=== PATIENT | female | born 1995 | race Caucasian/White ===

== ENCOUNTER 2019-06-01 13:32 | Emergency (ER) | payer BC, OTHER ==
--- NOTE | 2019-06-01 15:07 | EDPHYS ---
Physician Documentation [facility] Name: Harriett Yates Age: 24 yrs Sex: Female : 1995 Arrival Date: 06/01/2019 Time: 13:40 Bed DIS2 Private MD: ED Physician Yesi Klein HPI: 06/01 14:16 This 24 yrs old Female presents to ER via Ambulatory with complaints of Sore pm1 Throat, Congestion, Cough. 14:16 The patient presents with sore throat. The patient describes throat pain as constant, pm1 scratchy. 14:16 Onset: The symptoms/episode began/occurred yesterday. Severity of symptoms: in the pm1 emergency department the symptoms are actually worse. Modifying factors: The symptoms are alleviated by nothing, the symptoms are aggravated by swallowing, Patient's oral intake status: good The patient has had contact with sick spouse, who is present in the ER for the same complaint. Associated signs and symptoms: Pertinent positives: cough, Pertinent negatives fever, flu-like symptoms. The patient has not experienced similar symptoms in the past. The patient has not recently seen a physician. Historical: - Allergies: 13:49 PENICILLINS; la1 - PMHx: 13:49 ADD/ADHD; la1 - Immunization history:: Adult Immunizations up to date. - Social history:: Smoking status: Patient/guardian denies using tobacco. - Ebola Screening: : No symptoms or risks identified at this time. ROS: 14:16 Constitutional: Negative for fever, chills, and weight loss, Eyes: Negative for injury, pm1 pain, redness, and discharge. 14:16 Neck: Negative for injury, pain, and swelling, Cardiovascular: Negative for chest pain, palpitations, and edema. 14:16 Abdomen/GI: Negative for abdominal pain, nausea, vomiting, diarrhea, and constipation, Back: Negative for injury and pain, : Negative for injury, bleeding, discharge, and swelling, MS/Extremity: Negative for injury and deformity, Skin: Negative for injury, rash, and discoloration, Neuro: Negative for headache, weakness, numbness, tingling, and seizure. 14:16 ENT: Positive for sore throat, Negative for difficulty swallowing, difficulty handling secretions, hoarseness. 14:16 Respiratory: Positive for cough, Negative for shortness of breath, sputum production, wheezing. Exam: 14:16 Constitutional: This is a well developed, well nourished patient who is awake, alert, pm1 and in no acute distress. Head/Face: Normocephalic, atraumatic. Eyes: Pupils equal round and reactive to light, extra-ocular motions intact. Lids and lashes normal. Conjunctiva and sclera are non-icteric and not injected. Cornea within normal limits. Periorbital areas with no swelling, redness, or edema. 14:16 Neck: Trachea midline, no thyromegaly or masses palpated, and no cervical lymphadenopathy. Supple, full range of motion without nuchal rigidity, or vertebral point tenderness. No Meningismus. Chest/axilla: Normal chest wall appearance and motion. Nontender with no deformity. No lesions are appreciated. Cardiovascular: Regular rate and rhythm with a normal S1 and S2. No gallops, murmurs, or rubs. Normal PMI, no JVD. No pulse deficits. Respiratory: Lungs have equal breath sounds bilaterally, clear to auscultation and percussion. No rales, rhonchi or wheezes noted. No increased work of breathing, no retractions or nasal flaring. Abdomen/GI: Soft, non-tender, with normal bowel sounds. No distension or tympany. No guarding or rebound. No evidence of tenderness throughout. Back: No spinal tenderness. No costovertebral tenderness. Full range of motion. Skin: Warm, dry with normal turgor. Normal color with no rashes, no lesions, and no evidence of cellulitis. MS/ Extremity: Pulses equal, no cyanosis. Neurovascular intact. Full, normal range of motion. 14:16 ENT: External ear(s): are unremarkable, Ear canal(s): are normal, TM's: are normal, Nose: is normal, Posterior pharynx: Airway: normal, no evidence of obstruction, patent, Tonsils: bilaterally enlarged, with erythema, no exudate, no ulcerations, peritonsillar mass, is not appreciated. 14:16 Neuro: Orientation: is normal, Motor: is normal, moves all fours, Gait: is steady, at a normal pace, without difficulty. Vital Signs: 13:49 BP 116 / 74; Pulse 60; Resp 16; Temp 97.4; Pulse Ox 100% on R/A; Weight 61.69 kg; la1 Height 5 ft. 6 in. (167.64 cm); 13:49 Body Mass Index 21.95 (61.69 kg, 167.64 cm) la1 MDM: 14:16 Patient medically screened. pm1 15:05 Data reviewed: vital signs. Data interpreted: Pulse oximetry: on room air is 100 %. pm1 Interpretation: normal. Counseling: I had a detailed discussion with the patient and/or guardian regarding: the historical points, exam findings, and any diagnostic results supporting the discharge/admit diagnosis, lab results, the need for outpatient follow up, to return to the emergency department if symptoms worsen or persist or if there are any questions or concerns that arise at home. 06/01 13:41 Order name: Strep; Complete Time: 14:50 la1 06/01 13:41 Order name: Flu; Complete Time: 14:50 la1 06/01 14:19 Order name: Throat Culture EDMS Administered Medications: No medications were administered Disposition: 06/01/19 15:06 Discharged to Home. Impression: Acute nasopharyngitis [common cold]. - Condition is Stable. - Discharge Instructions: Antibiotic Resistance, Upper Respiratory Infection, Pediatric, Viral Respiratory Infection. - Prescriptions for Bromfed DM 2- 30-10 mg/5 mL Oral syrup - take 10 milliliter by ORAL route every 4 hours As needed; 200 milliliter. - Medication Reconciliation Form, Thank You Letter, Antibiotic Education, Prescription Opioid Use form. - Follow up: Emergency Department; When: As needed; Reason: Worsening of condition. Follow up: Private Physician; When: 2 - 3 days; Reason: Recheck today's complaints, Continuance of care, Re-evaluation by your physician. - Problem is new. - Symptoms have improved. Addendum: 06/02/2019 16:45 Co-signature as Attending Physician, Yesi Klein MD I agree with the assessment m a2 and plan of care. Signatures: Dispatcher [employer] EDMS Gibson Holder RN RN la1 Grayson Ortega, CARD GAME OPERATOR CARD GAME OPERATOR pm1 Yesi Klein MD MD ma2 Corrections: (The following items were deleted from the chart) 06/01 15:40 15:06 06/01/2019 15:06 Discharged to Home. Impression: Acute nasopharyngitis [common la1 cold]. Condition is Stable. Forms are Medication Reconciliation Form, Thank You Letter, Antibiotic Education, Prescription Opioid Use. Follow up: Emergency Department; When: As needed; Reason: Worsening of condition. Follow up: Private Physician; When: 2 - 3 days; Reason: Recheck today's complaints, Continuance of care, Re-evaluation by your physician. Problem is new. Symptoms have improved. pm1
--- NOTE | 2019-06-01 15:07 | ER ---
Nurse's Notes [facility] Name: Harriett Yates Age: 24 yrs Sex: Female : 1995 Arrival Date: 06/01/2019 Time: 13:40 Bed DIS2 Private MD: Diagnosis: Acute nasopharyngitis [common cold] Presentation: 06/01 13:48 Presenting complaint: Patient states: Cough, congestion, chills for one day. Transition la1 of care: patient was not received from another setting of care. Onset of symptoms was June 01, 2019. Risk Assessment: Do you want to hurt yourself or someone else? Patient reports no desire to harm self or others. Initial Sepsis Screen: Does the patient meet any 2 criteria? No. Patient's initial sepsis screen is negative. Does the patient have a suspected source of infection? No. Patient's initial sepsis screen is negative. Care prior to arrival: None. 13:48 Method Of Arrival: Ambulatory la1 13:48 Acuity: ASIYA 4 la1 Historical: - Allergies: 13:49 PENICILLINS; la1 - PMHx: 13:49 ADD/ADHD; la1 - Immunization history:: Adult Immunizations up to date. - Social history:: Smoking status: Patient/guardian denies using tobacco. - Ebola Screening: : No symptoms or risks identified at this time. Screenin:01 Abuse screen: Denies threats or abuse. Nutritional screening: No deficits noted. la1 Tuberculosis screening: No symptoms or risk factors identified. Fall Risk None identified. Assessment: 14:01 General: Appears in no apparent distress. Behavior is calm, cooperative. Pain: la1 Complains of pain in sore throat. Neuro: Level of Consciousness is awake, alert, obeys commands, Oriented to person, place, time, situation, Gait is steady. Cardiovascular: Capillary refill < 3 seconds Patient's skin is warm and dry. Respiratory: Airway is patent Respiratory effort is even, unlabored, Respiratory pattern is regular, symmetrical, Breath sounds are clear bilaterally. GI: No signs and/or symptoms were reported involving the gastrointestinal system. : No signs and/or symptoms were reported regarding the genitourinary system. EENT: Throat is reddened. Vital Signs: 13:49 BP 116 / 74; Pulse 60; Resp 16; Temp 97.4; Pulse Ox 100% on R/A; Weight 61.69 kg; la1 Height 5 ft. 6 in. (167.64 cm); 13:49 Body Mass Index 21.95 (61.69 kg, 167.64 cm) la1 ED Course: 13:40 Patient arrived in ED. mr 13:48 Triage completed. la1 13:49 Arm band placed on left wrist. la1 14:00 Gibson Holder RN is Primary Nurse. la1 14:01 No provider procedures requiring assistance completed. Patient did not have IV access la1 during this emergency room visit. 14:02 Patient has correct armband on for positive identification. la1 14:07 Grayson Ortega NP is PHCP. pm1 14:07 Yesi Klein MD is Attending Physician. pm1 Administered Medications: No medications were administered Outcome: 15:06 Discharge ordered by MD. pm1 15:40 Discharged to home ambulatory. la1 15:40 Condition: stable 15:40 Discharge instructions given to patient, Instructed on discharge instructions, follow up and referral plans. medication usage, Demonstrated understanding of instructions, follow-up care, medications. 15:40 Patient left the ED. la1 Signatures: Christiana Mccartney mr Gibson Holder RN RN la1 Grayson Ortega NP [place] pm1
[2019-06-01 16:10] VITALS: BP 116/74; TEMP 97.4; O2SAT 100
== END 2019-06-01 15:40 | disposition home or self-care (01) ==
LOC: ER 13:32
DX: J00 Acute nasopharyngitis [common cold] (principal); Z88.0 Allergy status to penicillin
CPT/HCPCS: 87070; 87081; 87804; 99281

== ENCOUNTER 2020-01-11 08:29 | Emergency (ER) | payer BC, OTHER ==
--- NOTE | 2020-01-11 09:11 | EDPHYS ---
Physician Documentation [facility] Name: Harriett Yates Age: 24 yrs Sex: Female : 1995 Arrival Date: 01/11/2020 Time: 08:32 Bed 5 Private MD: ED Physician Yesi Klein HPI: 01/10 09:14 This 24 yrs old Female presents to ER via Ambulatory with complaints of Sore snw Throat, Ear Pain, Headache. 09:14 The patient presents with sore throat. The patient describes throat pain as raw. Onset: snw The symptoms/episode began/occurred suddenly, 1 day(s) ago, and became persistent. Severity of symptoms: At their worst the symptoms were moderate. Modifying factors: The symptoms are alleviated by nothing. Associated signs and symptoms: The patient has no apparent associated signs or symptoms. The patient has experienced similar episodes in the past. The patient has not recently seen a physician. Historical: - Allergies: 08:49 PENICILLINS; ss - PMHx: 08:49 ADD/ADHD; ss - Immunization history:: Adult Immunizations up to date. - Social history:: Smoking status: Patient denies any tobacco usage or history of. ROS: 09:13 Constitutional: Negative for fever, chills, and weight loss, + fatigue Eyes: Negative snw for injury, pain, redness, and discharge. 09:13 Neck: Negative for injury, pain, and swelling, Respiratory: Negative for shortness of breath, cough, wheezing, and pleuritic chest pain, Abdomen/GI: Negative for abdominal pain, nausea, vomiting, diarrhea, and constipation, Back: Negative for injury and pain, : Negative for injury, bleeding, discharge, and swelling, MS/Extremity: Negative for injury and deformity, Skin: Negative for injury, rash, and discoloration, Neuro: Negative for headache, weakness, numbness, tingling, and seizure, Psych: Negative for depression, anxiety, suicide ideation, homicidal ideation, and hallucinations. 09:13 ENT: Positive for ear pain, sore throat. Exam: 09:13 Constitutional: This is a well developed, well nourished patient who is awake, alert, snw and in no acute distress. Head/Face: Normocephalic, atraumatic. Eyes: Pupils equal round and reactive to light, extra-ocular motions intact. Lids and lashes normal. Conjunctiva and sclera are non-icteric and not injected. Cornea within normal limits. Periorbital areas with no swelling, redness, or edema. Neck: Trachea midline, no thyromegaly or masses palpated, and no cervical lymphadenopathy. Supple, full range of motion without nuchal rigidity, or vertebral point tenderness. No Meningismus. Chest/axilla: Normal chest wall appearance and motion. Nontender with no deformity. No lesions are appreciated. Cardiovascular: Regular rate and rhythm with a normal S1 and S2. No gallops, murmurs, or rubs. Normal PMI, no JVD. No pulse deficits. Respiratory: Lungs have equal breath sounds bilaterally, clear to auscultation and percussion. No rales, rhonchi or wheezes noted. No increased work of breathing, no retractions or nasal flaring. Abdomen/GI: Soft, non-tender, with normal bowel sounds. No distension or tympany. No guarding or rebound. No evidence of tenderness throughout. Back: No spinal tenderness. No costovertebral tenderness. Full range of motion. Skin: Warm, dry with normal turgor. Normal color with no rashes, no lesions, and no evidence of cellulitis. MS/ Extremity: Pulses equal, no cyanosis. Neurovascular intact. Full, normal range of motion. Neuro: Awake and alert, GCS 15, oriented to person, place, time, and situation. Cranial nerves II-XII grossly intact. Motor strength 5/5 in all extremities. Sensory grossly intact. Cerebellar exam normal. Normal gait. Psych: Awake, alert, with orientation to person, place and time. Behavior, mood, and affect are within normal limits. 09:13 ENT: External ear(s): are unremarkable, Ear canal(s): are normal, TM's: are normal, Nose: is normal, Mouth: is normal, Posterior pharynx: erythema, that is moderate, Voice: is normal. Vital Signs: 08:45 BP 110 / 88; Pulse 92; Resp 15; Temp 99.2(TE); Pulse Ox 100% on R/A; Weight 58.97 kg; ss Height 5 ft. 6 in. (167.64 cm); Pain 6/10; 08:45 Body Mass Index 20.98 (58.97 kg, 167.64 cm) ss MDM: 08:51 Patient medically screened. snw 09:12 Data reviewed: vital signs, nurses notes. Data interpreted: Pulse oximetry: on room air snw is 100 %. Interpretation: normal. Counseling: I had a detailed discussion with the patient and/or guardian regarding: the historical points, exam findings, and any diagnostic results supporting the discharge/admit diagnosis, the presence of at least one elevated blood pressure reading (>120/80) during this emergency department visit, lab results, the need for outpatient follow up, to return to the emergency department if symptoms worsen or persist or if there are any questions or concerns that arise at home. Special discussion: I have referred the patient to see his PCP for further evaluation of high blood pressure. Based on the history and exam findings, there is no indication for further emergent testing or inpatient evaluation. I discussed with the patient/guardian the need to see the primary care provider for further evaluation of the symptoms. 01/10 08:39 Order name: COVID-19 snw 01/10 08:39 Order name: Flu; Complete Time: 09:38 snw 01/10 08:39 Order name: Strep; Complete Time: 09:38 snw 01/10 08:39 Order name: Droplet/Contact Precautions; Complete Time: 09:09 snw 01/10 09:38 Order name: Throat Culture EDMS 01/10 08:39 Order name: Labs collected and sent; Complete Time: 09:09 snw 01/10 08:39 Order name: O2 Per Protocol; Complete Time: 09:09 snw Administered Medications: No medications were administered Disposition: 13:16 Co-signature as Attending Physician, Yesi Klein MD. ma2 Disposition: 01/11/20 09:11 Discharged to Home. Impression: Acute pharyngitis. - Condition is Stable. - Discharge Instructions: Fever, Adult, Pharyngitis, Rehydration, Adult. - Work release form, Medication Reconciliation Form, Thank You Letter, Antibiotic Education, Prescription Opioid Use form. - Follow up: Emergency Department; When: As needed; Reason: Worsening of condition. Follow up: Private Physician; When: 1 week; Reason: Recheck today's complaints, Continuance of care, Re-evaluation by your physician. - Notes: Avoid Motrin. Increase fluid intake. Rest. Must quarantine until negative test results. Signatures: Dispatcher [employer] Payal Hill RN RN Naomi Medrano, LOGAN-C ASSURANCE MANAGER INSURANCE-Na Jj RN RN ss Yesi Klein MD MD ma2 Corrections: (The following items were deleted from the chart) 09:47 09:11 01/11/2020 09:11 Discharged to Home. Impression: Acute pharyngitis. Condition is sv Stable. Forms are Medication Reconciliation Form, Thank You Letter, Antibiotic Education, Prescription Opioid Use. Follow up: Emergency Department; When: As needed; Reason: Worsening of condition. Follow up: Private Physician; When: 1 week; Reason: Recheck today's complaints, Continuance of care, Re-evaluation by your physician. snw
--- NOTE | 2020-01-11 09:11 | ER ---
Nurse's Notes [facility] Name: Harriett Yates Age: 24 yrs Sex: Female : 1995 Arrival Date: 01/11/2020 Time: 08:32 Bed 5 Private MD: Diagnosis: Acute pharyngitis Presentation: 01/10 08:45 Chief complaint: Patient states: sore throat, headache, bilateral ear pain, fatigue and ss loss of appetite that began yesterday. Coronavirus screen: Patient denies a cough. Patient denies shortness of breath or difficulty breathing. Patient denies measured and/or subjective temperature greater than 100.4F prior to today's visit. Patient denies travel on a cruise ship or to a country the [facility] currently lists as an affected area. Patient denies contact with known and/or suspected case of COVID-19. ORDERED BY PROVIDER TO PLACE PATIENT ON CONTACT PRECAUTION. Ebola Screen: Patient denies exposure to infectious person. Patient denies travel to an Ebola-affected area in the 21 days before illness onset. Initial Sepsis Screen: Does the patient meet any 2 criteria? No. Patient's initial sepsis screen is negative. Does the patient have a suspected source of infection? No. Patient's initial sepsis screen is negative. Risk Assessment: Do you want to hurt yourself or someone else? Patient reports no desire to harm self or others. Onset of symptoms was January 10, 2020. 08:45 Method Of Arrival: Ambulatory ss 08:45 Acuity: ASIYA 4 ss Historical: - Allergies: 08:49 PENICILLINS; ss - PMHx: 08:49 ADD/ADHD; ss - Immunization history:: Adult Immunizations up to date. - Social history:: Smoking status: Patient denies any tobacco usage or history of. Screenin:00 Abuse screen: Denies threats or abuse. Denies injuries from another. Nutritional sv screening: No deficits noted. Tuberculosis screening: No symptoms or risk factors identified. Fall Risk None identified. Assessment: 09:00 General: Appears in no apparent distress. comfortable, well developed, Behavior is sv calm, cooperative, appropriate for age. General: Reports fatigue for 1-2 days, loss of appetite. Pain: Complains of pain in left aspect of posterior pharynx and right aspect of posterior pharynx Pain currently is 6 out of 10 on a pain scale. Quality of pain is described as burning, Pain began 1 day ago. Is continuous. Neuro: Level of Consciousness is awake, alert, obeys commands, Oriented to person, place, time, situation, Moves all extremities. Full function Gait is steady. Respiratory: Airway is patent Respiratory effort is even, unlabored, Respiratory pattern is regular, symmetrical. EENT: Reports pain in left aspect of posterior pharynx, right aspect of posterior pharynx, left ear and right ear when swallowing. Derm: Skin is intact, Skin is pink, warm \T\ dry. Musculoskeletal: Range of motion: intact in all extremities. 09:04 Reassessment: COVID-19 obtained. sv 09:21 Reassessment: Pt up for discharge but waiting for flu and strep to be resulted before sv discharge. 09:46 Reassessment: Patient appears in no apparent distress at this time. No changes from sv previously documented assessment. Patient and/or family updated on plan of care and expected duration. Pain level reassessed. Patient is alert, oriented x 3, equal unlabored respirations, skin warm/dry/pink. Vital Signs: 08:45 BP 110 / 88; Pulse 92; Resp 15; Temp 99.2(TE); Pulse Ox 100% on R/A; Weight 58.97 kg; ss Height 5 ft. 6 in. (167.64 cm); Pain 6/10; 08:45 Body Mass Index 20.98 (58.97 kg, 167.64 cm) ED Course: 08:32 Patient arrived in ED. as 08:38 [facility] Potter [facility]C [facility] snw 08:38 Yesi Klein MD is Attending Physician. snw 08:49 Triage completed. ss 08:49 Arm band placed on left wrist. ss 08:50 Payal Washington RN is Primary Nurse. sv 09:00 Patient has correct armband on for positive identification. Bed in low position. Call sv light in reach. Door closed. Head of bed elevated. Patient placed on droplet and contact precautions with eye protection. 09:04 Flu and/or RSV swab sent to lab. Strep swab sent to lab. sv 09:22 No provider procedures requiring assistance completed. Patient did not have IV access sv during this emergency room visit. Administered Medications: No medications were administered Outcome: 09:11 Discharge ordered by MD. molina 09:47 Discharged to home ambulatory. 09:47 Condition: stable 09:47 Discharge instructions given to patient, Instructed on discharge instructions, follow up and referral plans. Instructions gone over by Naomi NOLAN. Demonstrated understanding of instructions, follow-up care. 09:47 Patient left the ED. sv Addendum: 01/15/2020 15:41 Addendum: Other pt notified of negative COVID-19 swab results. Pt advised to remain in d m5 isolation until symptom free for 3 days and to return to the ED for worsening Symptoms. Signatures: Ludy Calles, RN RN dmPayal Tineo RN RN sv Naomi Potter, COMPO CONVEYOR OPERATOR-C COMPO CONVEYOR OPERATOR-Flora Pendleton Shelby, RN RN
[2020-01-11 09:53] VITALS: BP 110/88; TEMP 99.2; O2SAT 100
== END 2020-01-11 09:47 | disposition home or self-care (01) ==
LOC: ER 08:29
DX: J02.9 Acute pharyngitis, unspecified (principal); Z20.828 Contact with and (suspected) exposure to other viral communicable diseases; Z88.0 Allergy status to penicillin
CPT/HCPCS: 87070; 87081; 87804 ×2; 99283; U0002

== ENCOUNTER 2022-01-23 08:24 | Emergency (ER) | payer BC, OTHER ==
--- NOTE | 2022-01-23 08:47 | EDPHYS ---
Physician Documentation [facility] Name: Harriett Yates Age: 26 yrs Sex: Female : 1995 Arrival Date: 01/23/2022 Time: 08:27 Bed 18 Private MD: ED Physician Fox Membreno HPI: 01/23 08:37 This 26 yrs old Female presents to ER via Ambulatory with complaints of Skin Problem. [facility] 08:37 The patient's rash thought to be caused by an unknown cause. The rash is located on the jmm body diffusely. Onset: The symptoms/episode began/occurred gradually, 1 week(s) ago. Associated signs and symptoms: Pertinent positives: itching, Pertinent negatives: burning sensation, difficulty breathing, Pain swelling of lips, swelling of throat, swelling of tongue, vomiting, wheezing. The patient has not experienced similar symptoms in the past. Historical: - Allergies: 08:32 PENICILLINS; lp1 08:32 Amoxicillin; lp1 - PMHx: 08:56 ADD/ADHD; bp - Immunization history:: Adult Immunizations up to date. - Social history:: Smoking status: Patient denies any tobacco usage or history of. ROS: 08:37 Constitutional: Negative for fever, chills, and weight loss, Cardiovascular: Negative jm for chest pain, palpitations, and edema, Respiratory: Negative for shortness of breath, cough, wheezing, and pleuritic chest pain. 08:37 Skin: Positive for rash. 08:37 All other systems are negative. Exam: 08:37 Constitutional: This is a well developed, well nourished patient who is awake, alert, jmm and in no acute distress. Head/Face: atraumatic. Eyes: EOMI, no conjunctival erythema appreciated ENT: Moist Mucus Membranes Neck: Trachea midline, Supple Chest/axilla: Normal chest wall appearance and motion. Cardiovascular: Regular rate and rhythm. No edema appreciated Respiratory: Normal respirations, no respiratory distress appreciated Abdomen/GI: Non distended Back: Normal ROM 08:37 Neuro: Awake and alert Psych: Behavior is normal, Mood is normal, Patient is cooperative and pleasant 08:37 Skin: ringworm, on the back, right arm, left arm, right leg and left leg. Vital Signs: 08:31 BP 128 / 68; Pulse 70; Resp 18; Temp 99.0(O); Pulse Ox 100% ; Weight 65.77 kg; Height 5 lp1 ft. 7 in. (170.18 cm); 08:31 Body Mass Index 22.71 (65.77 kg, 170.18 cm) lp1 MDM: 08:37 Patient medically screened. [facility] 08:44 Data reviewed: vital signs, nurses notes. Counseling: I had a detailed discussion with [facility] the patient and/or guardian regarding: the historical points, exam findings, and any diagnostic results supporting the discharge/admit diagnosis, the need for outpatient follow up, to return to the emergency department if symptoms worsen or persist or if there are any questions or concerns that arise at home. Administered Medications: No medications were administered Disposition: 09:55 Co-signature as Attending Physician, Fox Membreno MD I agree with the assessment and kdr plan of care. Disposition Summary: 01/23/22 08:46 Discharge Ordered Location: Home [facility] Condition: Stable [facility] Diagnosis - Tinea corporis [facility] Followup: [facility] - With: Private Physician - When: 2 - 3 days - Reason: Recheck today's complaints, Continuance of care, Re-evaluation by your physician Discharge Instructions: - Discharge Summary Sheet [facility] - Body Ringworm [facility] Forms: - Medication Reconciliation Form [facility] - Thank You Letter [facility] - Antibiotic Education [facility] - Prescription Opioid Use [facility] - Work release form eb Prescriptions: - ketoconazole 2 % Topical cream - apply 1 application by TOPICAL route 2 times per day for 2 weeks; 1 tube; [facility] Refills: 0, Product Selection Permitted Signatures: Pierce Clemente MD MD cha Rittger, Kevin, MD MD kdr Mickail, Joel, PA PA [facility] Nery Carrillo, RN RN lp1 Rehan Estrada, RN RN bp
--- NOTE | 2022-01-23 08:47 | ER ---
Nurse's Notes [facility] Name: Harriett Yates Age: 26 yrs Sex: Female : 1995 Arrival Date: 01/23/2022 Time: 08:27 Bed 18 Private MD: Diagnosis: Tinea corporis Presentation: 01/23 08:31 Chief complaint: Patient states: pt presented with skin rash x1 week. Coronavirus lp1 screen: Vaccine status: Patient reports being unvaccinated. Ebola Screen: Patient denies travel to an Ebola-affected area in the 21 days before illness onset. Initial Sepsis Screen: Does the patient meet any 2 criteria? No. Patient's initial sepsis screen is negative. Does the patient have a suspected source of infection? No. Patient's initial sepsis screen is negative. Risk Assessment: Do you want to hurt yourself or someone else? Patient reports no desire to harm self or others. Onset of symptoms was January 16, 2022. 08:31 Method Of Arrival: Ambulatory lp1 08:31 Acuity: ASIYA 4 lp1 Triage Assessment: 08:32 General: Appears in no apparent distress. Behavior is calm, cooperative. Pain: Denies lp1 pain. Historical: - Allergies: 08:32 PENICILLINS; lp1 08:32 Amoxicillin; lp1 - PMHx: 08:56 ADD/ADHD; bp - Immunization history:: Adult Immunizations up to date. - Social history:: Smoking status: Patient denies any tobacco usage or history of. Screenin:35 Abuse screen: Denies threats or abuse. Denies injuries from another. Nutritional bp screening: No deficits noted. Tuberculosis screening: No symptoms or risk factors identified. Fall Risk None identified. Assessment: 08:35 General: SEE TRIAGE NOTE. bp 08:55 Reassessment: PT D/C HOME AMBULATORY WITH FAMILY, DX WITH RINGWORM. bp Vital Signs: 08:31 BP 128 / 68; Pulse 70; Resp 18; Temp 99.0(O); Pulse Ox 100% ; Weight 65.77 kg; Height 5 lp1 ft. 7 in. (170.18 cm); 08:31 Body Mass Index 22.71 (65.77 kg, 170.18 cm) lp1 ED Course: 08:27 Patient arrived in ED. as 08:27 Wiley Stacy PA is PHCP. [facility] 08:27 Fox Membreno MD is Attending Physician. [facility] 08:32 Triage completed. lp1 08:34 Rehan Estrada, RN is Primary Nurse. bp 08:35 Arm band placed on. bp 08:35 Patient has correct armband on for positive identification. Bed in low position. Call bp light in reach. Side rails up X2. Adult w/ patient. 08:55 No provider procedures requiring assistance completed. Patient did not have IV access bp during this emergency room visit. Administered Medications: No medications were administered Medication: 08:35 VIS not applicable for this client. bp Outcome: 08:46 Discharge ordered by . [facility] 08:55 Discharged to home ambulatory, with family. bp 08:55 Condition: stable 08:55 Discharge instructions given to patient, Instructed on discharge instructions, follow up and referral plans. medication usage, Demonstrated understanding of instructions, follow-up care, medications, Prescriptions given X 1. 08:57 Patient left the ED. bp Signatures: Wiley Stacy PA PA Flora Stanley Laura, RN RN lp1 Rehan Estrada, RN RN bp
[2022-01-23 09:06] VITALS: BP 128/68; TEMP 99; O2SAT 100
== END 2022-01-23 08:57 | disposition home or self-care (01) ==
LOC: ER 08:24
DX: B35.4 Tinea corporis (principal); Z88.1 Allergy status to other antibiotic agents; Z88.0 Allergy status to penicillin
CPT/HCPCS: 99282

== ENCOUNTER 2022-06-15 11:54 | Emergency (ER) | payer OTHER ==
[2022-06-15] MEDS ORDERED: METHYLPREDNISOLONE 125 MG INJ ONE (12:14)
--- OUTSIDE RECORDS SUMMARY | 2022-06-15 12:43 | XMS REPORT | Continuity of Care Document ---
:1995 Author Organization [facility] t Address [address] [place] [address] [address] [place] [address] Care Team Providers Name Role Phone VALERI FISHER Primary Care Physician Unavailable BIBIANA MATHUR Attending Clinician Unavailable DR VALERI FISHER Attending Clinician Unavailable [phone] Attending Clinician Unavailable MONIKA Attending Clinician Unavailable DR VALERI FISHER Admitting Clinician Unavailable MONIKA Admitting Clinician Unavailable Payers Payer Name Policy Type Policy Number Effective Date Expiration Date S ch[place] BLUE CROSS BLUE [id number] [facility] [id number] 2014 00:00:00 [facility] [id number] 2021 [facility] - 00:00:00 STAR (MEDICAID HMO) Problems Condition Condition Condition Status Onset Resolution Last Treating Co mments Source Name Details Category Date Date Treatment Clinician Date Borderline Borderline Problem Active [facility] personalit Personalit 6-17 da y disorder y Disorder 00:00: [facility] Posttrauma Posttrauma Problem Active [facility] tic stress tic Stress 6-17 da disorder Disorder 00:00: [facility] Depressive Depressive Problem Active [facility] disorder Disorder 6-17 da 00:00: [facility] Anxiety Anxiety Problem Active [place] 6-17 da 00:00: [facility] Allergies, Adverse Reactions, Alerts Allergy Allergy Status Severity Reaction(s) Onset Inactive Treating Comm ents Source Name Type Date Date Clinician Amoxicil Allergy Active Moderate Hives [place] to da substanc [facility] No Known MA Active UNKNOWN [facility] [place] [facility] PCN DA Active UNKNOWN [place] (penicil [place] [facility] AMOXICIL DA Active UNKNOWN El [facility] Social History Smoking Status Start Date Stop Date Source Never Smoker Jael [facility] Medications Ordered Filled Start Stop Current Ordering Indication Dosage Frequency Signature Comments Components Source Medication Medication Date Date Medication? 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 ar route. months by intramuscu lar route. 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 [facility] Index) Health Outreach Program BP Systolic 2022-01-06 00:00:00 116 mm[Hg] [facility] Body Weight 2022-01-06 00:00:00 147 [lb_av] [facility] Procedures Procedure Date / Time Performed Performing Clinician Sourc e US, transvaginal 2022-01-06 00:00:00 [place] [facility] Plan of Care Planned Activity Planned Date Details Comments Source Diagnostic Test 2022-01-06 cytology report, [place] Pending 00:00:00 thin prep, smear or [facility] scraping, cervical Outreach [facility] or vaginal [code = cytology report, thin prep, smear or scraping, cervical or vaginal] Diagnostic Test 2022-01-06 CMP, serum or plasma Pope atiya Pending 00:00:00 [code = CMP, serum [facility] or plasma] Outreach Progra m Diagnostic Test 2022-01-06 CBC w/ auto diff [place] Pending 00:00:00 [code = CBC w/ auto [facility] diff] Outreach [facility] m Diagnostic Test 2022-01-06 RPR (rapid plasma [place] Pending 00:00:00 reagin), serum [code [facility] = RPR (rapid plasma Outreach Program reagin), serum] Diagnostic Test 2022-01-06 HIV 1 + 2, [place] Pending 00:00:00 meaningful use set [facility] [code = HIV 1 + 2, Outreach Program meaningful use set] Diagnostic Test 2022-01-06 HBsAg (hepatitis B [place] electron beam operator Pending 00:00:00 surface Ag), EIA, [facility] serum [code = HBsAg Outreach Program (hepatitis B surface Ag), EIA, serum] Diagnostic Test 2022-01-06 TSH + free T4, serum [facility] at[facility] Pending 00:00:00 [code = TSH + free [facility] T4, serum] Outreach Progra m Diagnostic Test 2022-01-06 lipid panel, serum [place] electron beam operator Pending 00:00:00 [code = lipid panel, [facility] serum] Outreach Pro[facility] m Diagnostic Test 2022-01-06 culture, urine [code [facility] Pending 00:00:00 = culture, urine] [facility] Outreach Pro[facility] m Diagnostic Test 2022-01-06 test, [place] Pending 00:00:00 urine [code = [facility] test, Outreach Pro gram urine] Diagnostic Test 2022-01-06 urinalysis, dipstick [facility] Pending 00:00:00 [code = urinalysis, [facility] dipstick] Outreach Progra m Future Appointment 2023-01-06 Andree Peter, [address] [place] 00:00:00 Rhonda Azevedo; , [facility] [id number] Outreach Progr am Encounters Start End Encounter Admission Attending Care Care Encounter Source Date/Time Date/Time Type Type Clinicians Facility Department ID 2022-02-01 Outpatient [facility] [id number] El 14:06:36 [id number] [facility] 2022-06-10 2022-06-10 Emergency ER KEVAN, [facility] [id number] [place] 10:12:00 11:26:00 BIBIANA [id number] [facility] 2022-02-13 2022-02-13 Outpatient VALERI PRESCOTT [id number] [place] 08:36:00 09:15:00 [id number] [facility] 2022-02-01 2022-02-01 Outpatient VALERI PRESCOTT [id number] [place] 14:12:00 15:00:00 [id number] [facility] [place] [facility] 2022-01-20 2022-01-20 Outpatient REENA_RUSTYI MEHOP MEHOP [id number] [place] 00:00:00 00:00:00 SSA [id number] da [facility] 2022-01-06 2022-01-06 Outpatient REENA_RUSTYI MEHOP MEHOP [id number] [place] 12:19:00 12:19:00 SSA [id number] da [facility] 2022-01-06 2022-01-06 Andree MARTHA [place] - [id number] Maddie atagor 00:00:00 00:00:00 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 2022-01-02 2022-01-02 Outpatient REENA_RUSTYI MEHOP MEHOP [id number] [place] 12:28:00 12:28:00 [facility] h Program Results Test Description Test Time Test Comments Results Result Comments Source Urinalysis macro (dipstick) panel - Urine 2022-01-06 10:40:0 0 Test Item Value Reference Range Interpretation Comme nts Leukocytes (test code = Leukocytes) neg Nitrite (test code = Nitrite) neg Urobilinogen (test code = Urobilinogen) 0.2 Protein (test code = Protein) neg pH (test code = pH) 6.0 Blood (test code = Blood) neg Specific [place] (test code = Specific [place]) 1.025 Ketone (test code = Ketone) neg Bilirubin (test code = Bilirubin) neg Glucose (test code = Glucose) neg [facility] [id number] 10:36:00 Test Item Value Reference Range Interpretation Comments HCG (test code = HCG) negative [facility]
[2022-06-15 13:45] LABS: SARS-COV-2 RT PCR POSITIVE (NEGATIVE)
--- NOTE | 2022-06-15 13:46 | ER ---
Nurse's Notes [facility] Name: Harriett Yates Age: 27 yrs Sex: Female : 1995 Arrival Date: 06/15/2022 Time: 11:57 Bed 12 Private MD: Diagnosis: SARS-associated coronavirus as the cause of diseases classified elsewhere Presentation: 06/15 12:04 Chief complaint: Patient states: Fever, sinus congestion with yellow/green mucous, ll1 chest congestion, cough, VILLAGOMEZ for 1 week. Went to [facility] on Sunday, cough medication they gave her isn't helping a lot. Coronavirus screen: Vaccine status: Patient reports being unvaccinated. Client denies travel out of the [place] in the last 14 days. congestion, cough unrelated to allergies, fatigue, fever, headache, runny nose, Client presents with at least one sign or symptom that may indicate coronavirus-19. Standard/surgical mask placed on the client. Ebola Screen: Patient denies travel to an Ebola-affected area in the 21 days before illness onset. Initial Sepsis Screen: Does the patient meet any 2 criteria? No. Patient's initial sepsis screen is negative. Does the patient have a suspected source of infection? No. Patient's initial sepsis screen is negative. Risk Assessment: Do you want to hurt yourself or someone else? Patient reports no desire to harm self or others. Onset of symptoms was June 09, 2022. 12:04 Method Of Arrival: Ambulatory ll1 12:04 Acuity: ASIYA 4 ll1 Triage Assessment: 12:07 General: Appears uncomfortable, Behavior is cooperative, appropriate for age. Pain: ll1 Complains of pain in head Pain currently is 5 out of 10 on a pain scale. Quality of pain is described as aching. EENT: Reports nasal congestion. Neuro: Reports headache weakness. Respiratory: Reports cough that is. Historical: - Allergies: 12:04 PENICILLINS; ll1 12:04 Amoxicillin; ll1 - PMHx: 12:04 ADD/ADHD; ll1 - PSHx: 12:04 None; ll1 - Immunization history:: Client reports having NOT received the Covid vaccine. - Social history:: Smoking status: Patient denies any tobacco usage or history of. Screenin:23 Abuse screen: Denies threats or abuse. Denies injuries from another. Nutritional tp1 screening: No deficits noted. Tuberculosis screening: No symptoms or risk factors identified. Fall Risk None identified. Assessment: 12:15 General: Appears in no apparent distress. comfortable, Behavior is calm, cooperative. tp1 Pain: Complains of pain in head Pain does not radiate. Pain currently is 5 out of 10 on a pain scale. Quality of pain is described as pressure. Neuro: Level of Consciousness is awake, alert, confused, Oriented to person, place, time, situation. Neuro: Reports headache. Cardiovascular: Patient's skin is warm and dry. Respiratory: Airway is patent Respiratory effort is even, unlabored, Breath sounds are clear bilaterally. GI: Patient currently denies diarrhea, nausea, vomiting. : No signs and/or symptoms were reported regarding the genitourinary system. EENT: Reports nasal congestion. Derm: Skin is pink, warm \T\ dry. Musculoskeletal: Circulation, motion, and sensation intact. Vital Signs: 12:04 BP 139 / 91; Pulse 78; Resp 17; Temp 98.3; Pulse Ox 99% on R/A; Weight 70.31 kg; Height ll1 5 ft. 7 in. (170.18 cm); Pain 5/10; 14:04 BP 129 / 88; Pulse 80; Resp 16; Pulse Ox 99% on R/A; tp1 12:04 Body Mass Index 24.28 (70.31 kg, 170.18 cm) ll1 ED Course: 11:57 Patient arrived in ED. mr 11:57 Zayra Nicole FNP-C is [facility] kb 11:57 Jermaine Bernard DO is Attending Physician. kb 11:58 Arm band placed on Patient placed in an exam room, on a stretcher. ll1 12:06 Triage completed. ll1 12:12 Marivel Dixon, RN is Primary Nurse. tp1 12:17 COVID-19/FLU A+B Sent. ll1 12:23 Patient has correct armband on for positive identification. Bed in low position. Call tp1 light in reach. 12:23 No provider procedures requiring assistance completed. Patient did not have IV access tp1 during this emergency room visit. Administered Medications: 12:20 Drug: SOLU-Medrol (methylPREDNISolone sodium succinate) 125 mg Route: IM; Site: right tp1 gluteus; 14:04 Follow up: Response: No adverse reaction tp1 Medication: 12:31 VIS not applicable for this client. tp1 Outcome: 13:45 Discharge ordered by MD. [place] 14:04 Discharged to home ambulatory, with family. tp1 14:04 Condition: good 14:04 Discharge instructions given to patient, Instructed on discharge instructions, follow up and referral plans. Demonstrated understanding of instructions, follow-up care. 14:05 Patient left the ED. tp1 Signatures: Zayra Nicole, ESTER FORD-Christiana Griggs mr Desiree Little, RN RN ll1 Marivel Dixon RN RN tp1 Corrections: (The following items were deleted from the chart) 12:31 12:15 Respiratory: Airway is patent Respiratory effort is even, unlabored, tp1 tp1
--- NOTE | 2022-06-15 13:46 | EDPHYS ---
Physician Documentation [facility] Name: Harriett Yates Age: 27 yrs Sex: Female : 1995 Arrival Date: 06/15/2022 Time: 11:57 Bed 12 Private MD: ED Physician Jermaine Bernard HPI: 06/15 12:39 This 27 yrs old Female presents to ER via Ambulatory with complaints of Sinus kb Congestion, Chest Congestion, Fever. 12:39 The patient or guardian reports cough, that is intermittent, described as mild, flu kb symptoms, low-grade fever, myalgias. Onset: The symptoms/episode began/occurred 1 week(s) ago. Severity of symptoms: At their worst the symptoms were moderate, in the emergency department the symptoms are unchanged. Modifying factors: The symptoms are alleviated by nothing, the symptoms are aggravated by nothing. Associated signs and symptoms: Pertinent positives: fever, rhinorrhea, Pertinent negatives: chest pain, diarrhea, ear ache, nausea, sore throat, vomiting. The patient has not experienced similar symptoms in the past. The patient has not recently seen a physician. Pt reports cough, congestion, malaise, fever, chills, bodyaches for a week. Historical: - Allergies: 12:04 PENICILLINS; ll1 12:04 Amoxicillin; ll1 - PMHx: 12:04 ADD/ADHD; ll1 - PSHx: 12:04 None; ll1 - Immunization history:: Client reports having NOT received the Covid vaccine. - Social history:: Smoking status: Patient denies any tobacco usage or history of. ROS: 12:39 Abdomen/GI: Negative for abdominal pain, nausea, vomiting, diarrhea, and constipation. kb 12:39 Constitutional: Positive for body aches, chills, fatigue, fever, malaise. 12:39 ENT: Positive for rhinorrhea, sinus congestion. 12:39 Respiratory: Positive for cough. 12:39 Neuro: Positive for headache. 12:39 All other systems are negative. Exam: 12:38 Constitutional: This is a well developed, well nourished patient who is awake, alert, kb and in no acute distress. Head/Face: Normocephalic, atraumatic. ENT: Moist Mucous membranes Cardiovascular: Regular rate and rhythm with a normal S1 and S2. No gallops, murmurs, or rubs. No pulse deficits. Respiratory: Respirations even and unlabored. No increased work of breathing. Talking in full sentences Abdomen/GI: Soft, non-tender. No distention Skin: Warm, dry with normal turgor. Normal color. MS/ Extremity: Pulses equal, no cyanosis. Neurovascular intact. Full, normal range of motion. Neuro: Awake and alert, GCS 15, oriented to person, place, time, and situation. Moves all extremities. Normal gait. Psych: Awake, alert, with orientation to person, place and time. Behavior, mood, and affect are within normal limits. Vital Signs: 12:04 BP 139 / 91; Pulse 78; Resp 17; Temp 98.3; Pulse Ox 99% on R/A; Weight 70.31 kg; Height ll1 5 ft. 7 in. (170.18 cm); Pain 5/10; 14:04 BP 129 / 88; Pulse 80; Resp 16; Pulse Ox 99% on R/A; tp1 12:04 Body Mass Index 24.28 (70.31 kg, 170.18 cm) ll1 MDM: 11:57 Patient medically screened. kb 12:38 Data reviewed: vital signs, nurses notes. Data interpreted: Pulse oximetry: on room air kb is 99 %. Interpretation: normal. 13:45 Counseling: I had a detailed discussion with the patient and/or guardian regarding: the kb historical points, exam findings, and any diagnostic results supporting the discharge/admit diagnosis, lab results, the need for outpatient follow up, a family practitioner, to return to the emergency department if symptoms worsen or persist or if there are any questions or concerns that arise at home. 06/15 12:12 Order name: COVID-19/FLU A+B; Complete Time: 13:47 kb Administered Medications: 12:20 Drug: SOLU-Medrol (methylPREDNISolone sodium succinate) 125 mg Route: IM; Site: right tp1 gluteus; 14:04 Follow up: Response: No adverse reaction tp1 Disposition: 15:12 Co-signature as Attending Physician, Jermaine Bernard DO I was immediately available on-site ms3 in the Emergency Department for consultation in the care of the patient. Disposition Summary: 06/15/22 13:45 Discharge Ordered Location: Home kb Condition: Stable kb Diagnosis - SARS-associated coronavirus as the cause of diseases classified elsewhere kb Followup: kb - With: Emergency Department - When: As needed - Reason: Worsening of condition Followup: kb - With: Private Physician - When: 2 - 3 days - Reason: Recheck today's complaints, Continuance of care, Re-evaluation by your physician Discharge Instructions: - Discharge Summary Sheet kb - COVID-19 kb - Viral Illness, Adult kb Forms: - Medication Reconciliation Form kb - Thank You Letter kb - Antibiotic Education kb - Prescription Opioid Use kb - Work release form tp1 Signatures: Dispatcher [employer] EDMS Zayra Nicole, REAR LOAD TRUCK DRIVER-C REAR LOAD TRUCK DRIVER-Desiree Mack, RN RN ll1 Jermaine Bernard DO DO ms3 Marivel Dixon, RN RN tp1
[2022-06-15 14:09] VITALS: TEMP 98.3; O2SAT 99
[2022-06-15 14:10] VITALS: BP 129/88
== END 2022-06-15 14:05 | disposition home or self-care (01) ==
LOC: ER 11:54
DX: U07.1 COVID-19 (principal); Z88.0 Allergy status to penicillin; Z88.1 Allergy status to other antibiotic agents
CPT/HCPCS: 0240U; 96372; 99283; J2930

== ENCOUNTER 2023-03-07 11:59 | Emergency (ER) | payer OTHER ==
--- OUTSIDE RECORDS SUMMARY | 2023-03-07 12:04 | XMS REPORT | Continuity of Care Document ---
:1995 Author Organization [facility] t Address [address] [facility] [address] [place] [address] Care Team Providers Name Role Phone VALERI FISHER Primary Care Physician Unavailable MONIKA Attending Clinician Unavailable CATHRYN VALLES Attending Clinician Unavailable Tanmay Parker Attending Clinician Unavailable Seb Henao DO Attending Clinician SEB HENAO Attending Clinician Unavailable Kayla Pelayo Attending Clinician Unavailable DR VALERI FISHER Attending Clinician Unavailable [phone] Attending Clinician Unavailable Tanya Attending Clinician Unavailable MONIKA Admitting Clinician Unavailable DR VALERI FISHER Admitting Clinician Unavailable Tanya Admitting Clinician Unavailable Payers Payer Name Policy Type Policy Number Effective Date Expiration Date Valentina chula BLUE CROSS BLUE [id number] [facility] [id number] 2021 [facility] - 00:00:00 STAR (MEDICAID H[place] [id number] 2014 00:00:00 [place] [id number] 2014 00:00:00 Problems Condition Condition Condition Status Onset Resolution Last Treating Co mments Source Name Details Category Date Date Treatment Clinician Date Borderline Borderline Problem Active M [facility] personalit Personalit 6 da y disorder y Disorder 00:00: [facility] Posttrauma Posttrauma Problem Active [facility] tic stress tic Stress 01-06 da disorder Disorder 00:00: [facility] Depressive Depressive Problem Active [facility] disorder Disorder 01-06 da 00:00: [facility] Anxiety Anxiety Problem Active [place] 01-06 da 00:00: [facility] Allergies, Adverse Reactions, Alerts Allergy Allergy Status Severity Reaction(s) Onset Inactive Treating Comm ents Source Name Type Date Date Clinician Amoxicil Propensi Active Anaphylaxis 2021-07 U nivers jose ty to 09-14 ity of adverse 00:00: [place] reaction 00 Medical s Branch AMOXICIL DRUG Active Anaphylaxis 2021-07 Uni vers JOSE INGREDI 09-14 ity of 00:00: [place] 00 Medical Branch AMOXICIL DA Active UNKNOWN El JOSE [facility] NO KNOWN Drug Active Univers ALLERGIE Class ity of [facility] No Known MA Active UNKNOWN El Drug [facility] Amoxicil Allergy Active Moderate Hives [place] jose to da substanc [facility] PENICILL Allergy Active Severe Respiratory Ma tagor INS to distress da substanc [facility] PCN DA Active UNKNOWN El (penicil [facility] Social History Social Habit Start Date Stop Date Quantity Comments Source Sex Assigned At [birth year] [facility] 00:00:00 00:00:00 Medical Branch Smoking Status Start Date Stop Date Source Never Smoker Kendall [facility] Tobacco smoking consumption [facility] Medications Ordered Filled Start Stop Current Ordering Indication Dosage Frequency Signature Comments Components Source Medication Medication Date Date Medication? Clinician (SIG) Name Name metroNIDAZO 2021-07 Yes [id number] 500mg Take 1 Univers LE 500 mg 2-23 tablet by ity o f tablet 00:00: mouth in [place] [address] the Medical morning Branch and 1 tablet in the evening. predniSONE 2016-07 Yes 1 PO BID x U nivers 20 mg 0-23 4 days ity of tablet 00:00: [place] [address] Medical Branch fluticasone Yes 2{spray Use 2 Un nola (FLONASE) 9-20 } Sprays in ity o f 50 00:00: each [facility] nostril Medic al on nasal daily. 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 30 days. for 30 days. aripiprazol aripiprazol No aripiprazo [place] e 5 mg e 5 mg le 5 mg da tablet TAKE tablet TAKE tablet [facility] 1 TABLET BY 1 TABLET BY TAKE 1 al MOUTH EVERY MOUTH EVERY TABLET BY Health DAY DAY MOUTH Outreac EVERY DAY h Program azithromyci azithromyci No azithromyc [place] n 250 mg n 250 mg in 250 mg da tablet TAKE tablet TAKE tablet [facility] 2 TABLETS 2 TABLETS TAKE 2 al BY MOUTH BY MOUTH TABLETS BY H ealth TODAY, THEN TODAY, THEN MOUTH Outreac TAKE 1 TAKE 1 TODAY, h TABLET TABLET THEN TAKE Progra m DAILY FOR 4 DAILY FOR 4 1 TABLET DAYS DAYS DAILY FOR 4 DAYS benzonatate benzonatate No benzonatat [place] 100 mg 100 mg e 100 mg da capsule capsule capsule [facility] TAKE ONE TAKE ONE TAKE ONE al (1) (1) (1) Health CAPSULE(S) CAPSULE(S) CAPSULE(S) Outreac BY MOUTH BY MOUTH BY MOUTH h THREE TIMES THREE TIMES THREE Program A DAY FOR A DAY FOR TIMES A COUGH. COUGH. DAY FOR COUGH. bromphenira bromphenira No bromphenir [place] mine-pseudo mine-pseudo amine-pseu da ephedrine-D ephedrine-D doephedrin [facility] M 2 mg-30 M 2 mg-30 e-DM 2 al mg-10 mg/5 mg-10 mg/5 mg-30 He alth mL oral mL oral mg-10 mg/5 Out reac syrup TAKE syrup TAKE mL oral h 10 MLS BY 10 MLS BY syrup TAKE Program MOUTH EVERY MOUTH EVERY 10 MLS BY 6 HOURS FOR 6 HOURS FOR MOUTH COLD COLD EVERY 6 SYMPTOMS. SYMPTOMS. HOURS FOR COLD SYMPTOMS. fluoxetine fluoxetine No fluoxetine [place] 40 mg 40 mg 40 mg da capsule capsule capsule [facility] TAKE 1 TAKE 1 TAKE 1 al CAPSULE BY CAPSULE BY CAPSULE BY Health MOUTH EVERY MOUTH EVERY MOUTH Outreac DAY DAY EVERY DAY h Program ketoconazol ketoconazol No ketoconazo [place] e 2 % e 2 % le 2 % da topical topical topical [facility] cream APPLY cream APPLY cream al TO AFFECTED TO AFFECTED APPLY TO Health AREA TWICE AREA TWICE AFFECTED Outreac A DAY X 2 A DAY X 2 AREA TWICE h WEEKS WEEKS A DAY X 2 Program WEEKS medroxyprog medroxyprog No medroxypro [place] esterone esterone gesterone da 150 mg/mL 150 mg/mL 150 mg/mL [facility] intramuscul intramuscul intramuscu al ar syringe ar syringe lar Hea lth INJECT 1 INJECT 1 syringe Outr eac MILLILITER MILLILITER INJECT 1 h INTRAMUSCUL INTRAMUSCUL MILLILITER Program IVY EVERY IVY EVERY INTRAMUSCU 3 MONTHS 3 MONTHS LARLY EVERY 3 MONTHS metronidazo metronidazo No metronidaz [place] le 500 mg le 500 mg ole 500 mg da tablet TAKE tablet TAKE tablet [facility] ONE (1) ONE (1) TAKE ONE al TABLET(S) TABLET(S) (1) Healt h BY MOUTH IN BY MOUTH IN TABLET(S) Outreac THE MORNING THE MORNING BY MOUTH h AND 1 AND 1 IN THE Program TABLET IN TABLET IN MORNING THE THE AND 1 EVENING. EVENING. TABLET IN THE EVENING. sertraline sertraline No sertraline [place] 100 mg 100 mg 100 mg da tablet TAKE tablet TAKE tablet [facility] ONE (1) ONE (1) TAKE ONE al TABLET(S) TABLET(S) (1) Healt h BY MOUTH BY MOUTH TABLET(S) Ou treac ONCE A DAY. ONCE A DAY. BY MOUTH h ONCE A Program DAY. Abilify 10 Abilify 10 No 1 Q1D Abilify 10 [place] mg tablet mg tablet mg tablet da Take 1 Take 1 Take 1 [facility] tablet tablet tablet al every day every day every day Health by oral by oral by oral Outrea c route at route at route at h bedtime for bedtime for bedtime Program 30 days. 30 days. for 30 days. Diflucan Diflucan No 1 Q2D Diflucan [place] 150 mg 150 mg 150 mg da tablet Take tablet Take tablet [facility] 1 tablet 1 tablet Take 1 al every other every other tablet Health day by oral day by oral every Outreac route for 6 route for 6 other day h days. days. by oral Program route for 6 days. metronidazo metronidazo No 1 Q12H metronidaz [place] le 500 mg le 500 mg ole 500 mg da tablet Take tablet Take tablet [facility] 1 tablet 1 tablet Take 1 al every 12 every 12 tablet Healt h hours by hours by every 12 Out reac oral route oral route hours by h for 7 days. for 7 days. oral route Program for 7 days. aripiprazol aripiprazol No aripiprazo [place] 10 mg e 10 mg le 10 mg da tablet TAKE tablet TAKE tablet [facility] 1 TABLET 1 TABLET TAKE 1 al EVERY DAY EVERY DAY TABLET Hea lth BY ORAL BY ORAL EVERY DAY Outr eac ROUTE AT ROUTE AT BY ORAL h BEDTIME FOR BEDTIME FOR ROUTE AT Program 30 DAYS. 30 DAYS. BEDTIME FOR 30 DAYS. fluconazole fluconazole No fluconazol [place] 150 mg 150 mg e 150 mg da tablet TAKE tablet TAKE tablet [facility] ONE (1) ONE (1) TAKE ONE al TABLET BY TABLET BY (1) TABLET Health MOUTH EVERY MOUTH EVERY BY MOUTH Outreac OTHER DAY OTHER DAY EVERY h FOR 6 DAYS. FOR 6 DAYS. OTHER DAY Program FOR 6 DAYS. metronidazo metronidazo No metronidaz [place] le 500 mg le 500 mg ole 500 mg da tablet TAKE tablet TAKE tablet [facility] ONE (1) ONE (1) TAKE ONE al TABLET BY TABLET BY (1) TABLET Health MOUTH EVERY MOUTH EVERY BY MOUTH Outreac 12 HOURS 12 HOURS EVERY 12 h FOR 7 DAYS. FOR 7 DAYS. HOURS FOR Program 7 DAYS. Diflucan Diflucan No 1 Q1D Diflucan [place] 100 mg 100 mg 100 mg da tablet Take tablet Take tablet Medical 1 tablet 1 tablet Take 1 Group every day every day tablet by oral by oral every day route for 3 route for 3 by oral days. days. route for 3 days. Vital Signs Vital Name Observation Time Observation Value Comments Source Body Weight 2023-02-21 00:00:00 146 [lb_av] [place] [facility] BMI (Body Mass 2023-02-21 00:00:00 22.9 kg/m2 [facility] auditor appraiser Index) [facility] BP Systolic 2023-02-21 00:00:00 131 mm[Hg] [facility] Height 2023-02-21 00:00:00 67 [in_i] [place] [facility] BP Diastolic 2023-02-21 00:00:00 72 mm[Hg] [place] [facility] BP Diastolic 2022-08-02 00:00:00 75 mm[Hg] [place] [facility] Height 2022-08-02 00:00:00 67 [in_i] [place] [facility] BMI (Body Mass 2022-08-02 00:00:00 24.2 kg/m2 [facility] auditor appraiser Index) [facility] BP Systolic 2022-08-02 00:00:00 120 mm[Hg] [place] [facility] Body Weight 2022-08-02 00:00:00 154.2 [lb_av] Valentino da [facility] Systolic blood 2022-07-14 20:50:00 126 mm[Hg] Univer sity of pressure [facility] Diastolic blood 2022-07-14 20:50:00 83 mm[Hg[facility] 2022-07-14 20:50:00 79 /min [facility] Body temperature 2022-07-14 20:50:00 37.72 Josefina [facility] Respiratory rate 2022-07-14 20:50:00 16 /min [facility] Body height 2022-07-14 20:50:00 170.2 cm [facility] Body weight 2022-07-14 20:50:00 69.4 kg [facility] BMI 2022-07-14 20:50:00 23.96 kg/m2 [facility] Oxygen saturation in 2022-07-14 20:50:00 98 /min [facility] blood by [facility] Pulse oximetry Branch BP Diastolic 2022-01-06 00:00:00 74 mm[Hg] [place] [facility] Height 2022-01-06 00:00:00 67 [in_i] [place] [facility] BMI (Body Mass 2022-01-06 00:00:00 23 kg/m2 [place] auditor appraiser Index) [facility] BP Systolic 2022-01-06 00:00:00 116 mm[Hg] [place] [facility] Body Weight 2022-01-06 00:00:00 147 [lb_av] [place] [facility] BP Diastolic 2020-05-11 00:00:00 72 mm[Hg] [facility] Height 2020-05-11 00:00:00 66 [in_i] [facility] BP Systolic 2020-05-11 00:00:00 111 mm[Hg] [facility] Procedures Procedure Date / Time Performing Clinician Source Performed URINALYSIS 2022-07-14 21:03:00 [facility] 2022-01-06 00:00:00 [facility] ULTRASOUND, 2020-05-11 00:00:00 Valentino Reynolds UTERUS REAL TIME WITH Group IMAGE DOCUMENTAITON, TRANSVAGINAL Plan of Care Planned Activity Planned Date Details Comments Source Diagnostic Test 2023-02-21 test, Kendall [facility] Pending 00:00:00 urine [code = Health Outreac h test, Program urine] Diagnostic Test 2023-02-21 HCG, intact + beta [place] auditor appraiser [facility] Pending 00:00:00 subunit, quant, Health Outre ach serum or plasma Program [code = HCG, intact + beta subunit, quant, serum or plasma] Diagnostic Test 2020-05-11 wet mount, vaginal [place] auditor appraiser Medical Pending 00:00:00 [code = wet mount, Group vaginal] Encounters Start End Encounter Admission Attending Care Care Encounter Source Date/Time Date/Time Type Type Clinicians Facility Department ID 2022-02-01 Outpatient JEREMY LUNA [id number] El 14:06:36 [id number] [facility] 2023-02-21 2023-02-21 Outpatient REENA_TEETEE THOMAS [id number] [place] 00:00:00 00:00:00 SSA [id number] [facility] 2023-02-21 2023-02-21 Cathryn THOMAS [place] - [id number] [place] [facility] 00:00:00 00:00:00 Imani Flores, [facility]oo [facility] SENIOR UI DEVELOPER: [address] N, RACK CLEANER [facility], [place] [phone] Sara manrique , Ph. 2022-10-04 2022-10-04 Outpatient GLENDY VIEIRA [facility] [id number] [place] 10:46:00 10:46:00 CATHRYN -[id number] [facility] 2022-09-18 2022-09-18 Outpatient LISTER_MELI MEHOP MEHOP [id number] [place] 00:00:00 00:00:00 SSA [id number] [facility] 2022-09-06 2022-09-06 Outpatient LISTER_MELI MEHOP MEHOP 119 [id number] [place] 00:00:00 00:00:00 SSA [id number] [facility] 2022-08-02 2022-08-02 Outpatient LISTER_MELI MEHOP MEHOP 119 [id number] [place] 00:00:00 00:00:00 SSA [id number] [facility] 2022-08-02 2022-08-02 Outpatient LISTER_MELI MEHOP MEHOP 119 [id number] [place] 00:00:00 00:00:00 SSA [id number] [facility] 2022-08-02 [facility]22-08-02 [facility] [place] [facility] [id number] [place] 00:00:00 00:00:00 MD Ramírez: Jael miranda 2112 Voodoo [facility] - MEHOP [facility] [address], [facility], [place] [address] , Ph. 2022-08-01 2022-08-01 Outpatient LISTER_MELI MEHOP MEHOP 119 [id number] [place] 00:00:00 00:00:00 SSA [id number] [facility] 2022-07-31 2022-07-31 Outpatient LISTER_MELI MEHOP MEHOP 119 [id number] [place] 00:00:00 00:00:00 SSA 42680 [facility] 2022-07-29 2022-07-29 emergency [id number] 20:30:00 23:09:00 [id number] 2022-07-29 2022-07-29 Emergency ER Elena [facility] [id number] [id number] [place] 20:30:00 23:09:00 Tanmay -[id number] [facility] 2022-07-14 2022-07-14 Emergency [facility] [id number] Univers 14:52:00 16:10:00 Seb PRUE [id number] i [facility] [id number] [facility] [id number] [place] [address] Branch 2022-07-14 2022-07-14 [facility] [id number] Univers 14:52:00 16:10:00 SEB flores [facility] 2022-06-10 2022-06-10 Emergency ER Pierce, [facility] [id number] [place] 10:12:00 11:26:00 Kayla -[id number] [facility] 2022-02-13 2022-02-13 Outpatient VALERI PRESCOTT [id number] El 08:36:00 09:15:00 [id number] [facility] 2022-02-01 2022-02-01 Outpatient VALERI PRESCOTT [id number] El 14:12:00 15:00:00 [id number] [facility] 2022-01-20 2022-01-20 Outpatient REENA_TEETEE MELOHOP 119 [id number] [place] 00:00:00 00:00:00 SSA da [facility] 2022-01-06 2022-01-06 Outpatient REENA_TEETEE THOMAS MEHOP 119 [id number] [place] 12:19:00 12:19:00 SSA da [facility] 2022-01-06 2022-01-06 Cathryn THOMAS [place] - [id number] Maddie atagojeffrey 00:00:00 00:00:00 Imani Flores, Voodoo [facility] SENIOR UI DEVELOPER: [address], RACK CLEANER [facility] [phone] [facility] , Ph. 2022-01-02 2022-01-02 Outpatient LISTER_TEETEE THOMAS [facility] 119 - [place] 12:28:00 12:28:00 SSA 11303 [facility] Program 2020-08-10 2020-08-10 Outpatient G_Pappas MMG MMG [id number] [place] 01:03:00 01:03:00 0119 [facility] 2020-07-06 2020-07-06 Outpatient G_Pappas MMG MMG [id number] [place] 01:03:00 01:03:00 1215 [facility] 2020-06-08 2020-06-08 Outpatient G_Pappas MMG MMG [id number] [place] 09:37:00 09:37:00 1117 Medical Group 2020-06-01 2020-06-01 Outpatient G_Pappas MMG MMG [id number] [place] 01:03:00 01:03:00 1110 Medical Group 2020-05-19 2020-05-19 Outpatient G_Pappas MMG MMG [id number] [place] 12:13:00 12:13:00 1028 [facility] 2020-05-13 2020-05-13 Outpatient G_Pappas MMG MMG [id number] [place] 08:43:00 08:43:00 1022 Medical Group 2020-05-11 2020-05-11 Outpatient G_Pappas MMG MMG [id number] [place] 10:11:00 10:11:00 1020 Medical Group 2020-05-11 2020-05-11 [facility] [place] - [id number] M at[place] 00:00:00 00:00:00 Discovery kameron Aguiar MD: [address] [place] [phone] , Ph. [phone] 2020-04-14 2020-04-14 Outpatient G_Pappas MMG MMG [id number] [place] 11:52:00 11:52:00 0923 [facility] 2020-04-14 2020-04-14 Outpatient G_Pappas MMG MMG [id number] [place] 11:52:00 11:52:00 1016 Medical Group 2020-04-14 2020-04-14 Outpatient G_Pappas [facility] [id number] [place] 11:52:00 11:52:00 1019 Medical Group Results Test Description Test Time Test Comments Results Result Comments Source Choriogonadotropin.intact+Beta subunit [Units/volume] in Serum 2023-02-22 00:00:00 or Plasma Test Item Value Reference Range Interpretation Comme nts Choriogonadotropin.intact+Beta subunit [Units/volume] in Serum or 5 4 mIU/mL Plasma (test code = 02143-2) [facility] [id number] 15:54:00 Test Item Value Reference Range Interpretation Comments HCG (test code = HCG) positive [facility] - Vaginal fluid by MIGUEL with probe [id number] 00:00:00 Test Item Value Reference Range Interpretation Comments Atopobium vaginae DNA [Presence] in low - 0 Vaginal fluid by MIGUEL with probe detection (test code = 07689-9) Bacterial vaginosis associated low - 0 bacterium 2 DNA [Presence] in Vaginal fluid by MIGUEL with probe detection (test code = 32764-2) Megasphaera sp type 1 DNA [Presence] low - 0 in Vaginal fluid by MIGUEL with probe detection (test code = 86592-2) Roselyn albicans DNA [Presence] in positive negative A Vaginal fluid by MIGUEL with probe detection (test code = 94631-7) Roselyn glabrata DNA [Presence] in negative negative Vaginal fluid by MIGUEL with probe detection (test code = 40484-1) Trichomonas vaginalis DNA [Presence] negative negative in Vaginal fluid by MIGUEL with probe detection (test code = 41462-8) Chlamydia trachomatis DNA [Presence] negative negative in Vaginal fluid by MIGUEL with probe detection (test code = 03621-7) Neisseria gonorrhoeae DNA [Presence] negative negative in Vaginal fluid by MIGUEL with probe detection (test code = 50092-0) [facility] macro (dipstick) panel - [id number] 10:40:00 Test Item Value Reference Range Interpretation Comments Leukocytes (test code = Leukocytes) neg Nitrite (test code = Nitrite) neg Urobilinogen (test code = Urobilinogen) 0.2 Protein (test code = Protein) neg pH (test code = pH) 6.0 Blood (test code = Blood) neg Specific [place] (test code = Specific 1.025 [place]) Ketone (test code = Ketone) neg Bilirubin (test code = Bilirubin) neg Glucose (test code = Glucose) neg [facility], [id number] 10:36:00 Test Item Value Reference Range Interpretation Comments HCG (test code = HCG) negative [facility]
--- NOTE | 2023-03-07 13:12 | EDPHYS ---
Physician Documentation [facility] Name: Harriett Yates Age: 27 yrs Sex: Female : 1995 Arrival Date: 03/07/2023 Time: 11:59 Bed 11 Private MD: MARILIN Physician Pierce Clemente HPI: 03/07 13:05 This 27 yrs old Female presents to ER via Ambulatory with complaints of Fever randy blister. 13:05 The patient presents with swelling, ulceration. The problem is located in the upper [facility] kathy border. Onset: The symptoms/episode began/occurred 4 day(s) ago. Duration: The symptoms are continuous, and are unchanged since they started. Modifying factors: The symptoms are alleviated by nothing, the symptoms are aggravated by chewing, cold fluids, hot fluids. Associated signs and symptoms: The patient has no apparent associated signs or symptoms. Severity of symptoms: At their worst the symptoms were mild, in the emergency department the symptoms are unchanged. The patient has experienced similar episodes in the past, multiple times. 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 - Social history:: Smoking status: Patient denies any tobacco usage or history of. ROS: 13:06 Constitutional: Negative for fever, chills, and weight loss, Eyes: Negative for injury, randy pain, redness, and discharge, ENT: Negative for injury, pain, and discharge, Neck: Negative for injury, pain, and swelling, Cardiovascular: Negative for chest pain, palpitations, and edema, Respiratory: Negative for shortness of breath, cough, wheezing, and pleuritic chest pain, Abdomen/GI: Negative for abdominal pain, nausea, vomiting, diarrhea, and constipation, Back: Negative for injury and pain, : Negative for injury, bleeding, discharge, and swelling, MS/Extremity: Negative for injury and deformity, Neuro: Negative for headache, weakness, numbness, tingling, and seizure, Psych: Negative for depression, anxiety, suicide ideation, homicidal ideation, and hallucinations, Allergy/Immunology: Negative for hives, rash, and allergies, Endocrine: Negative for neck swelling, polydipsia, polyuria, polyphagia, and marked weight changes, Hematologic/Lymphatic: Negative for swollen nodes, abnormal bleeding, and unusual bruising. 13:06 Skin: Positive for swelling, of the upper kathy border and mouth. Exam: 13:06 Constitutional: This is a well developed, well nourished patient who is awake, alert, randy and in no acute distress. Head/Face: Normocephalic, atraumatic. Eyes: Pupils equal round and reactive to light, extra-ocular motions intact. Lids and lashes normal. Conjunctiva and sclera are non-icteric and not injected. Cornea within normal limits. Periorbital areas with no swelling, redness, or edema. Neck: Trachea midline, no thyromegaly or masses palpated, and no cervical lymphadenopathy. Supple, full range of motion without nuchal rigidity, or vertebral point tenderness. No Meningismus. Chest/axilla: Normal chest wall appearance and motion. Nontender with no deformity. No lesions are appreciated. Cardiovascular: Regular rate and rhythm with a normal S1 and S2. No gallops, murmurs, or rubs. Normal PMI, no JVD. No pulse deficits. Respiratory: Lungs have equal breath sounds bilaterally, clear to auscultation and percussion. No rales, rhonchi or wheezes noted. No increased work of breathing, no retractions or nasal flaring. Abdomen/GI: Soft, non-tender, with normal bowel sounds. No distension or tympany. No guarding or rebound. No evidence of tenderness throughout. Back: No spinal tenderness. No costovertebral tenderness. Full range of motion. Skin: Warm, dry with normal turgor. Normal color with no rashes, no lesions, and no evidence of cellulitis. MS/ Extremity: Pulses equal, no cyanosis. Neurovascular intact. Full, normal range of motion. Neuro: Awake and alert, GCS 15, oriented to person, place, time, and situation. Cranial nerves II-XII grossly intact. Motor strength 5/5 in all extremities. Sensory grossly intact. Cerebellar exam normal. Normal gait. Psych: Awake, alert, with orientation to person, place and time. Behavior, mood, and affect are within normal limits. 13:06 ENT: Mouth: Lips: moist, Oral mucosa: normal, noted to have ulceration(s), on the upper kathy border, Gums: normal with healthy appearance, Tongue: is normal, abscess, is not appreciated, drooling, is not appreciated. Vital Signs: 12:10 BP 129 / 76; Pulse 76; Resp 18 S; Temp 98.1(TE); Pulse Ox 100% on R/A; Weight 68.04 kg; cm10 Height 5 ft. 8 in. ; Pain 4/10; 12:10 Body Mass Index 22.81 (68.04 kg, 172.72 cm) cm10 12:10 Pain Scale: Adult cm10 MDM: 12:11 Patient medically screened. [facility] 13:07 Differential diagnosis: aphthous ulcers, gingivostomatitis. Data reviewed: vital signs, [facility] nurses notes. Consideration of Admission/Observation Escalation of care including admission/observation considered. I considered the following discharge prescriptions or medication management in the emergency department Medications were administered in the Emergency Department. See MAR. Test considered but Not performed: Labs: labs. Historians other than the Patient: Spouse/Significant Other: sign other. Care significantly affected by the following chronic conditions: adhd/add. Administered Medications: No medications were administered Disposition Summary: 03/07/23 13:12 Discharge Ordered Location: Home [facility] Problem: new [facility] Symptoms: have improved randy Condition: Stable randy Diagnosis - Other human herpesvirus infection - cold sore [facility] - Encounter for supervision of other normal , first trimester randy Followup: randy - With: Private Physician - When: 2 - 3 days - Reason: Recheck today's complaints, Re-evaluation by your physician Discharge Instructions: - Discharge Summary Sheet randy - Cold Sore randy - Care randy - First Trimester of , [id number] randy - First Trimester of randy - Cold Sore, [id number] [facility] - Viral Illness, Adult [facility] Forms: - Medication Reconciliation Form [facility] - Thank You Letter [facility] - Antibiotic Education [facility] - Prescription Opioid Use [facility] - Patient Portal Instructions [facility] - Leadership Thank You Letter [facility] Prescriptions: - Zovirax 5 % Topical Cream - apply 1 application by TOPICAL route 5 times per day; 3 gram; Refills: 0, randy Product Selection Permitted Signatures: Pierce Clemente MD MD cha Martinez, Clarissa RN RN cm10
--- NOTE | 2023-03-07 13:12 | ER ---
Nurse's Notes [facility] Name: Harriett Yates Age: 27 yrs Sex: Female : 1995 Arrival Date: 03/07/2023 Time: 11:59 Bed 11 Private MD: Diagnosis: Other human herpesvirus infection-cold sore;Encounter for supervision of other normal , first trimester Presentation: 03/07 12:10 Chief complaint: Patient states: Fever blister to left side of mouth. Pt states, "I get cm10 them every time I am and I am again and this time the fever blister isn't going away.". Coronavirus screen: Vaccine status: Patient reports being unvaccinated. Ebola Screen: Patient denies travel to an Ebola-affected area in the 21 days before illness onset. No symptoms or risks identified at this time. Initial Sepsis Screen: Does the patient meet any 2 criteria? No. Patient's initial sepsis screen is negative. Does the patient have a suspected source of infection? No. Patient's initial sepsis screen is negative. Risk Assessment: Do you want to hurt yourself or someone else? Patient reports no desire to harm self or others. Onset of symptoms was March 05, 2023. 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 - Social history:: Smoking status: Patient denies any tobacco usage or history of. Screenin:28 [facility] ED Fall Risk Assessment (Adult) History of falling in the last 3 months, ap3 including since admission No falls in past 3 months (0 pts). Abuse screen: Denies threats or abuse. Nutritional screening: No deficits noted. Tuberculosis screening: No symptoms or risk factors identified. Assessment: 13:28 General: Appears in no apparent distress. Behavior is calm, cooperative, appropriate ap3 for age. Pain: Complains of pain in upper kathy border. Neuro: Level of Consciousness is awake, alert, obeys commands, Oriented to person, place, time, situation. Cardiovascular: Patient's skin is warm and dry. Respiratory: Airway is patent Respiratory effort is even, unlabored, Respiratory pattern is regular, symmetrical. Vital Signs: 12:10 BP 129 / 76; Pulse 76; Resp 18 S; Temp 98.1(TE); Pulse Ox 100% on R/A; Weight 68.04 kg; cm10 Height 5 ft. 8 in. ; Pain 4/10; 12:10 Body Mass Index 22.81 (68.04 kg, 172.72 cm) cm10 12:10 Pain Scale: Adult cm10 ED Course: 12:02 Patient arrived in ED. ts1 12:03 Pierce Clemente MD is Attending Physician. [facility] 12:12 Triage completed. cm10 12:13 Arm band placed on Patient placed in waiting room. cm10 13:28 Velvet Rizzo, RN is Primary Nurse. ap3 13:28 No provider procedures requiring assistance completed. Patient did not have IV access ap3 during this emergency room visit. 13:29 Patient has correct armband on for positive identification. Call light in reach. Adult ap3 w/ patient. Provided Education on: discharge education. Administered Medications: No medications were administered Medication: 13:29 VIS not applicable for this client. ap3 Outcome: 13:12 Discharge ordered by . [facility] 13:29 Discharged to home ambulatory, with family. ap3 13:29 Condition: good 13:29 Discharge instructions given to patient, family, Instructed on discharge instructions, follow up and referral plans. medication usage, Demonstrated understanding of instructions, follow-up care, medications, Prescriptions given X 1. 13:29 Patient left the ED. ap3 Signatures: Pierce Clemente MD MD cha Prokisch, Amanda, RN RN ap3 Katlyn Medley PAS PAS ts1 Margarita Moe, AWA RN cm10
[2023-03-07 13:34] VITALS: BP 129/76; TEMP 98.1; O2SAT 100
== END 2023-03-07 13:29 | disposition home or self-care (01) ==
LOC: ER 11:59
DX: O98.519 Other viral diseases complicating pregnancy, unspecified trimester (principal); B10.89 Other human herpesvirus infection; Z88.0 Allergy status to penicillin; Z88.1 Allergy status to other antibiotic agents